=== PATIENT | female | born 1950 | race American Indian/Alaskan Native ===

== ENCOUNTER 2017-04-21 15:42 | Emergency (ER) | payer MEDICARE ==
[2017-04-21 15:47] VITALS: BP 153/82; PULSE 89; RESP 19; TEMP 99.1; O2SAT 95
--- NOTE | 2017-04-21 16:40 | C.PDOC ---
History Of Present Illness 66 yo female come in for evaluation of intermittent Right lower back pain for past few weeks. Pt sts, for past few days, pain radiating now down to Right leg and inner knee. Pain is constant, aching, shooting at time. Otherwise, pt denies fever, chills, sore throat, abd. pain, N/V, denies UTi sx, weakness, sensory or vascular deficits to B/L lEs. Pt sts, had similar sx in past " resembles pain that I had when was diagnosed with DVT". Ambulate to ED with baseline gait, not in any apparent distress. Time Seen by Provider: 04/21/17 16:39 Chief Complaint (Nursing): Lower Extremity Problem/Injury History Per: Patient Past Medical History Reviewed: Historical Data, Nursing Documentation, Vital Signs Vital Signs: Last Vital Signs Temp 99.1 F 04/21/17 15:46 Pulse 89 04/21/17 15:46 Resp 19 04/21/17 15:46 BP 153/82 H 04/21/17 15:46 Pulse Ox 95 04/21/17 17:28 - Medical History PMH: Back Problems, HTN Family History: States: No Known Family Hx - Social History Hx Alcohol Use: No Hx Substance Use: No - Immunization History Hx Tetanus Toxoid Vaccination: No Hx Influenza Vaccination: No Hx Pneumococcal Vaccination: No Review Of Systems Except As Marked, All Systems Reviewed And Found Negative. Constitutional: Negative for: Fever, Chills ENT: Negative for: Throat Pain Cardiovascular: Negative for: Chest Pain, Palpitations, Edema, Light Headedness Respiratory: Negative for: Cough, Shortness of Breath, Wheezing Genitourinary: Negative for: Dysuria, Frequency, Incontinence Musculoskeletal: Positive for: Back Pain, Leg Pain Skin: Negative for: Lesions, Bruising Neurological: Negative for: Weakness, Numbness Physical Exam - Physical Exam Appears: Well, No Acute Distress Skin: Normal Color, Warm, Dry Eye(s): bilateral: PERRL Neck: Supple Cardiovascular: Rhythm Regular Respiratory: No Decreased Breath Sounds, No Accessory Muscle Use, No Stridor, No Wheezing Back: No CVA Tenderness, No Vertebral Tenderness, Paraspinal Tenderness (mild Right lumbar paraspinal tenderness) Extremity: Normal ROM (RLE), Tenderness (mild tenderness Right anterior/medial thigh. Mild tenderness medial aspect Right knee. No palpable deformity. FAROM of RILE, no neurovsacular defiicts.), No Pedal Edema, No Deformity, No Swelling Neurological/Psych: Oriented x3, Normal Speech, Normal Motor, Normal Sensation, Normal Reflexes ED Course And Treatment O2 Sat by Pulse Oximetry: 95 Pulse Ox Interpretation: Normal - CT Scan/US Dupple US RLE Other Rad Studies (CT/US): Read By Radiologist CT/US Interpretation: (-) for DVT, prelim reading Progress Note: On re-evaluation, pt is afebrile, hemodynamicaly stable. Non- toxic. PulseOx 95% RA. ENT: no acute findings. Lungs: CTA B/L, BS equal B/L. back: (-) CVA tenderness. Neurologicaly intact. Doppler US RLE (-) DVT. Pt has clinical findings c/w lumbar radiculopathy. Pt advised. ref. to F/u with PMD in 1-2 days for re-eavl. return to ED if any worsening or new changes. Disposition Counseled Patient/Family Regarding: Studies Performed, Diagnosis, Need For Followup, Rx Given - Disposition Referrals: Anamaria Salgado MD [Staff Provider] - Disposition Time: 18:02 Condition: STABLE Additional Instructions: Light duty to lower back Avoid prolong walking, standing, lifting, bending, etc Take pain medication as prescribed Follow up with PMD in 2-3 days for re-evaluation. Return to Ed if any worsening or new changes. Prescriptions: traMADol [Ultram] 50 mg PO TID #7 tab Instructions: Lumbar Radiculopathy (ED) - Clinical Impression Clinical Impression: Lumbar radiculopathy
--- NOTE | 2017-04-23 11:11 | VASCLAB ---
PROCEDURE: Right Lower Extremity Venous Duplex Exam. HISTORY: pain PRIORS: None. TECHNIQUE: Right common femoral, femoral, popliteal and posterior tibial, peroneal and great saphenous veins were evaluated. Flow was assessed with color Doppler, compressibility, assessment of phasic flow and augmentation response. Report prepared by KATYH Malcolm. FINDINGS: RIGHT: 1. Common Femoral Vein: 1.1. Compressibility - Fully compressible: Thrombus - None: Flow - Phasic: Augmentation -Normal: Reflux - None. 2. Femoral Vein: 2.1. Compressibility - Fully compressible: Thrombus - None: Flow - Phasic: Augmentation -Normal: Reflux - None. 3. Popliteal Vein: 3.1. Compressibility - Fully compressible: Thrombus - None: Flow - Phasic: Augmentation -Normal: Reflux - None. 4. Posterior Tibial Vein: 4.1. Compressibility - Fully compressible: Thrombus - None: Flow - Phasic: Augmentation -Normal: Reflux - None. 5. Peroneal Vein: 5.1. Compressibility - Fully compressible: Thrombus - None: Flow - Phasic: Augmentation -Normal: Reflux - None. 6. Great Saphenous Vein: 6.1. Compressibility - Fully compressible: Thrombus -None: Flow - Phasic: Augmentation - Normal: Reflux - None. OTHER FINDINGS: IMPRESSION: No evidence of deep or superficial vein thrombosis of the right lower extremity with excellent venous flow. Normal valve function noted of the right side. Normal venous flow noted in the left common femoral vein.
== END 2017-04-21 18:53 | disposition home or self-care (01) ==
LOC: C.ER 15:42
DX: M54.16 Radiculopathy, lumbar region (principal)

== ENCOUNTER 2017-12-14 05:23 | Day surgery (SDC) | payer MEDICARE, OTHER ==
[2017-11-26 09:21] VITALS: BMI 30.5
[2017-12-14] MEDS ORDERED: Bupivacaine HCl 0.5% PF (10 ml) Inj ONE ×2 (06:08→09:32)
[2017-12-14] MEDS ORDERED: ceFAZolin IV 1 gm in Dextrose 2 GM/100 ML BAG IVPB ONE (06:08)
[2017-12-14] MEDS ORDERED: EPINEPHrine 1:1000 Nasal Sol(30mL) ONE (06:09)
[2017-12-14] MEDS ORDERED: Propofol 10 mg/ml Inj (20 ML) ONE (06:59)
[2017-12-14] MEDS ORDERED: Rocuronium 10 mg/ml (10 ml) ONE (07:17)
[2017-12-14] MEDS ORDERED: ePHEDrine 50 mg/ml Inj ONE (07:59)
[2017-12-14] MEDS ORDERED: Neostigmine Methylsulfate 3mg/3ml Syringe IV ONE (08:17)
[2017-12-14] MEDS ORDERED: Bupivacaine HCl 0.25% PF (10 ml) Inj ONE (08:54)
[2017-12-14] MEDS ORDERED: HYDROmorphone 0.5 mg/0.5 ml ISec ONE (09:24)
[2017-12-14] MEDS: HYDROmorphone 0.5 mg/0.5 ml ISec IVP PRN ×2 (09:24→09:54)
[2017-12-14] MEDS ORDERED: Oxycodone/Acetaminophen 5/325 mg Tab PO PRN (09:35)
[2017-12-14] MEDS ORDERED: HYDROmorphone 0.5 mg/0.5 ml ISec IVP PRN (09:52)
[2017-12-14] MEDS ORDERED: HYDROmorphone 1 mg/ml ISec ONE (10:34)
[2017-12-14 11:25] VITALS: RESP 18; O2SAT 98
[2017-12-14 11:36] VITALS: BP 133/90; PULSE 100; TEMP 97
--- NOTE | 2017-12-19 22:36 | PCM.SURG1 ---
Surgeon's Initial Post Op Note - Surgeon's Notes Surgeon: Arely Urban MD Candy Cooker Helper: Duglas Lino PA-C Type of Anesthesia: General Endo, Block Regional Pre-Operative Diagnosis: Right knee #1 medial meniscal tear. #2 chondromalacia. #3 synovitis. #4 medial plica Operative Findings: Right knee. #1 medial meniscal tear (complex mid-body to posterior horn with hypermobility). 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 #3 synovitis. #4 medial plica. #5 lateral meniscus tear (complex free edge/white- white zone tear). #6 hypertrophic inflamed fat pad Post-Operative Diagnosis: Right knee. #1 medial meniscal tear (complex mid- body to posterior horn with hypermobility). 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 #3 synovitis. #4 symptomatic medial plica. #5 lateral meniscus tear (complex free edge/white-white zone tear). #6 hypertrophic inflamed fat pad Operation Performed: Right knee arthroscopic: #1 medial meniscus stabilization (repair) w/ partial medial menisectomy. #2 partial lateral menisectomy. #3 extensive synovectomy (including debridement hypertrophic fat pad/ resection symptomatic plica band/ extensive synovectomy all 3 compartments). #4 chondroplasty patella and medial femoral condyle. #5 PRP injection intra- articular Specimen/Specimens Removed: specimen= none. complications= none. tourniquet time= 0min. implants= Linvatec meniscal repair system, 4 implants /1 kit used in medial meniscal repair/ stabilization posterior horn Estimated Blood Loss: EBL {In ML}: 3 Blood Products Given: N/A Drains Used: No Drains Post-Op Condition: Good Date of Surgery/Procedure: 12/14/17 Time of Surgery/Procedure: 10:00
--- NOTE | 2018-01-17 05:12 | OP ---
PROCEDURE DATE: 12/14/2017 PREOPERATIVE DIAGNOSES: Right knee: 1. Medial meniscal tear. 2. Chondromalacia. 3. Synovitis. 4. Symptomatic medial plica band. POSTOPERATIVE DIAGNOSES: Right knee: 1. Medial meniscal tear (complex midbody to posterior horn tear with hypermobility). 2. Chondromalacia grade 1 to 2. 3. Synovitis throughout all 3 compartments. 4. Symptomatic medial plica band. 5. Lateral meniscus tear (complex free edge tear/white-white zone tear). 6. Hypertrophic inflamed fat pad. PROCEDURE: Right knee arthroscopic; 1. Medial meniscus stabilization/repair (with concomitant partial medial meniscectomy and debridement). 2. Partial lateral meniscectomy. 3. Extensive synovectomy in all 3 compartments (including debridement of hypertrophic fat pad/resection of symptomatic plica band/extensive synovectomy in all 3 compartments). 4. Chondroplasty patella and medial femoral condyle. 5. Intraarticular PRP injection. SURGEON: Arely Urban MD HOG COOLER: Duglas Lino PA-C JUSTIFICATION FOR HOG COOLER: Duglas Lino is a certified physician assistant professor of education whose skilled surgical services was an absolute necessity for successful completion of the procedure as he provided skilled surgical assistance with positioning of the patient, positioning of extremity, management of the surgical zamorano, retraction of the neurovascular structures, facilitating all inside medial meniscus repair/stabilization, handling of arthroscopic equipment including facilitating partial lateral meniscectomy and chondroplasty and extensive synovectomy, wound closure, fitting and placement of postop hinge knee brace. Duglas Lino was present for the entire case and was an absolute necessity for the successful completion of the procedure. TYPE OF ANESTHESIA: General endotracheal anesthesia with a postop regional nerve block placed by anesthesia staff in PACU. SPECIMENS: None. COMPLICATIONS: None. TOURNIQUET TIME: 0 minutes. IMPLANTS: Linvatec meniscal repair system, 4 implants/1 kit used in medial meniscal repair. ESTIMATED BLOOD LOSS: 3 mL. DRAINS: None. DISPOSITION: The patient was extubated and transferred to PACU in stable condition and tolerated the procedure well. INDICATIONS FOR SURGERY: The patient is a 67-year-old female with a past medical history significant for hypertension, diabetes, neuropathy, who presented to my office for the first time on 06/21/2017 with right knee pain and dysfunction. X-rays in the office showed that she had good alignment with joint spaces well maintained and no evidence of significant DJD. Physical examination was indicative of medial meniscal tear with positive medial Karsten and a medial plica band that was symptomatic and synovitis. She was referred for an MRI of the right knee done at [facility] on 05/16/2017, which was read as; 1. Medial meniscus with oblique tear involving the posterior horn/body junction. 2. Mild sprain of lateral collateral ligament proximally. On my review of the MRI, there was also some mild signal change in the cartilage and a medial plica band that was visualized. Under my care, she underwent placement in a Neoprene hinge knee brace, and a cortisone mixture injection to the right knee on 06/21/2017 with good resolution of her pain locally. She was compliant with physical therapy and was very happy with the outcome of the injection. The injection unfortunately only lasted a few weeks, and when she followed up in the office, her pain had returned to its baseline level of 9/10 with dysfunction and difficulty with ADLs. She underwent a second cortisone mixture injection on 08/27/2017, and again, she had complete resolution of pain that was temporary. She was compliant with her brace use. Finally when she followed up in the office on 10/22, she stated that she did not want any more injections and that her pain was significantly worse. She was having difficulty with ADLs and going up and down stairs and performing any activities that she likes. As stated before, she did not have any evidence of DJD and therefore, she was indicated for arthroscopic surgery. Right knee arthroscopy surgery = arthroscopic partial medial meniscectomy versus meniscus repair, extensive synovectomy, possible chondroplasty versus microfracture and all related indicated arthroscopic procedures. The risks, benefits and alternatives of the procedure were discussed in length with the patient with the risks including but not limited to infection, neurovascular damage, development of blood clots including DVT and PE, development of chronic pain and disability, failure of repair, failure of surgery, advanced chondrolysis, and degenerative wear, need for further surgery, inability to return to preinjury level of activity and occupation, anesthesia reactions including . After answering all of the questions, she stated that she understood the risks and wished to proceed with surgery. She watched surgical animation videos and diagnosis animation videos and stated that she had a good understanding of the procedure as well as her multiple diagnosis. She was referred to her primary care physician for preoperative medical clearance and PATs and the procedure was scheduled at [facility] on 12/14/2017. DESCRIPTION OF PROCEDURE: The patient was identified in the preoperative holding area and the right knee was marked for surgery. Once again as described above, the risks, benefits, and alternatives of the procedure were discussed at length with the patient and informed consent was obtained. After a brief discussion with anesthesia staff, perioperative IV antibiotics in the form of 2 gm of Ancef were administered. The patient was taken to the operating room, placed in a well-padded operating room table, with all bony prominences and superficial neurovascular structures well-padded. She was placed under general anesthesia without any difficulty or complication. Examination under anesthesia was then carried out. EXAMINATION UNDER ANESTHESIA: Right knee with full range of motion, compared to contralateral knee. No swelling, no warmth, no erythema, skin intact, no evidence of instability with negative anterior Drawer, negative posterior drawer, negative Brice, negative reverse Brice, negative pivot shift, negative reverse pivot shift, negative opening to medial or lateral joint lines at 0 or 30 degrees varus or valgus stress, patella with normal tracking, but there was a reproducible symptomatic medial plica band click engaging the inferomedial aspect of the patella at 30 degrees flexion throughout flexion arc, as well as a palpable click at the medial joint line past 90 degrees of flexion along the medial meniscus. CONTINUATION OF PROCEDURE: A tourniquet was placed high on the right thigh, but never inflated. The right lower extremity was prepped and draped in standard sterile fashion. The final time-out was done with the surgeon, anesthesia staff, OR staff, all in agreement with the patient, procedure being done, and the extremity being operated on. Normal saline 50 mL were used to insufflate the knee joint. Anterolateral portal was created with stab incision through the skin, down to subcutaneous tissues, down to the level of the capsule. A blunt arthroscopic trocar and cannula were inserted into the suprapatellar pouch. Arthroscopic camera was inserted, and insufflation of arthroscopic fluid was begun. With the use of spinal needle localization, optimal entry point for the anteromedial portal was created with stab incision through the skin down to subcutaneous tissues, down to the level of the capsule. With the use of an arthroscopic probe, a diagnostic arthroscopy was then carried out. DIAGNOSTIC ARTHROSCOPY: Attention was first turned towards the suprapatellar pouch, where immediately seen was grade 1 to 2 chondromalacia of the patella as well as hypertrophic synovium throughout all 3 compartments of the knee joint causing mechanical impingement. Extending from the inferior medial aspect of the patella to the medial retinaculum was a thickened symptomatic medial plica band, as well as hypertrophic synovial tissue. Attention was then turned towards the medial gutter where there was no evidence of loose bodies. As stated before, there was symptomatic thickened medial plica band. Attention was then turned towards the medial compartment where immediately seen at the anterior horn was a complex irreparable white-white zone anterior horn tear of the medial meniscus. On careful evaluation, there was indeed an oblique tear at the junction of the posterior horn and body through the white-white zone extending to the red-red zone as an oblique radial tear pattern. There was also significant hypermobility of the posterior horn with ability to sublux the posterior horn and medial meniscus beyond the mid point of the medial femoral condyle. Attention was then turned towards the intercondylar notch where intact ACL and PCL were seen. Attention was then turned towards the lateral compartments where a small complex free edge tear of the mid body of the lateral meniscus was identified that was deemed irreparable, that would be a future site of partial lateral meniscectomy. ARTHROSCOPIC PARTIAL LATERAL MENISCECTOMY: With the use of arthroscopic shaver and radiofrequency ablation and meniscal biters, a partial lateral meniscectomy was carried out, establishing a smooth contour to the complex free edge tearing at the mid body of the lateral meniscus. When this was carried out with satisfaction, approximately 5% of lateral meniscus was removed overall from this white-white zone tear. Final images were taken and attention was then turned towards the medial compartment. ARTHROSCOPIC MEDIAL MENISCUS REPAIR AND STABILIZATION: With the use of arthroscopic shaver and radiofrequency ablation as well as meniscal biters, a partial medial meniscectomy was carried out, removing the poor quality meniscus tissue and complex tearing in the white-white zone that was not amenable to repair. A smooth contour was established and overall approximately 25% of the medial meniscus was removed. As stated before, there was a significant hypermobility component to this injury pattern of the medial meniscus with ability to sublux the posterior horn of the medial meniscus beyond the mid point of the medial femoral condyle. To stabilize this, an all-inside medial meniscal repair was carried out. The posterior horn was stabilized to the posterior medial capsule with the use of Linvatec all-inside Sequent meniscal repair system. Four implants were placed at the superior aspect of the posterior horn, reducing the posterior horn to the posterior medial capsule providing good stability. All 4 implants had good capsular sided fixation resulting in placement of 3 alternating vertical and horizontal mattress sutures at the superior aspect of the posterior medial corner of the posterior medial meniscus, reducing it to the posterior medial capsule with good stability achieved. With the use of the arthroscopic probe, the stabilization/repair construct was tested and indeed good stability had been achieved. ARTHROSCOPIC EXTENSIVE SYNOVECTOMY: With the use of arthroscopic shaver and radiofrequency ablation, an extensive synovectomy was carried out in all 3 compartments of the knee including resection of the symptomatic medial plica band while maintaining good hemostasis and extensive synovectomy of all the inflamed hypertrophic synovium throughout all 3 compartments of the knee joints while maintaining good hemostasis, debridement and resection of the hypertrophic fat pad causing impingement anteriorly while maintaining good hemostasis. Once the extensive synovectomy was carried out to satisfaction, and good hemostasis was achieved, attention was then turned towards treatment of the cartilage injury of the patella. CHONDROPLASTY OF THE PATELLA AND MEDIAL FEMORAL CONDYLE: Both the medial femoral condyle and the patella exhibited grade 1 to 2 chondromalacia with no full thickness cartilage zone of injury seen. There were just some fibrillation and unstable cartilage fragments. With the use of arthroscopic shaver and radiofrequency ablation, a chondroplasty was carried out establishing a smooth rim to the cartilage surface while removing the unstable cartilage fragments. Once this was completed to satisfaction, final arthroscopic imaging of the extensive synovectomy and debridement, the medial meniscal repair, the partial lateral meniscectomy and the cartilage surface treatment was taken. All arthroscopic fluid and debris were removed from the knee joint. INTRAARTICULAR PRP INJECTION: With the help of anesthesia staff, 10 mL of PRP were obtained from a peripheral venous stick. The blood was spun in the Arthrex centrifuge and 10 mL of PRP were obtained. The PRP was injected intraarticular through the arthroscopic camera under direct visualization successfully in its entirety. Once this was done to satisfaction, the arthroscopic portals were then reapproximated with 2-0 Vicryl sutures for subcutaneous tissue, followed by 3-0 Monocryl suture for skin. Sterile dressings were applied followed by a layer of sterile cast padding from the toes up to the superior thigh, followed by a layer of compressive ALEKSANDER wrap from the toes up to the superior thigh. The knee was then fitted and placed in a postop hinged knee brace locked in 0 degrees extension. The brace was provided by my office and of medical necessity to protect the meniscus repair. The patient was then extubated from general anesthesia and transferred to PACU in stable condition and tolerated the procedure well. JUSTIFICATION AND RATIONALE FOR BILLING AND CODIN. Arthroscopic medial meniscal repair/stabilization of the posterior horn was carried out employing an all-inside arthroscopic technique resulting in a stable medial meniscus posterior horn. There was a concomitant partial medial meniscectomy but the most important part of the treatment to preserve her knee joint was the meniscus repair. Therefore, a medial meniscus repair was coded and billed. 2. Arthroscopic partial lateral meniscectomy: A successful partial lateral meniscectomy was carried out arthroscopically, and therefore, it was coded and billed. 3. Extensive synovectomy: An extensive synovectomy was carried out including debridement of the hypertrophic fat pad, extensive synovectomy of all 3 compartments removing the hypertrophic and inflamed synovium causing impingement, resection of the symptomatic medial plica bands. This was beyond usual and customary synovectomy for better visualization of the knee joint during arthroscopic surgery and a substantial amount of surgical time was dedicated towards the extensive synovectomy, and therefore, an extensive synovectomy in all 3 compartments was coded and billed. 4. Chondroplasty of patella and medial femoral condyle and trochlea: An arthroscopic chondroplasty establishing smooth cartilage surface of the patella, trochlea, medial femoral condyle was carried out removing the unstable cartilage fragments as an independent part of the procedure, and therefore, was coded and billed. 5. Intraarticular PRP injection: PRP injection was carried out under direct visualization in intraarticular position, and therefore, was coded and billed. 6. A postop hinge knee brace was fitted and placed on the patient prior to extubation provided by my office and was placed out of medical necessity to provide stability to the medial meniscal repair and to maximize chance of successful outcome after surgery. Therefore, the postop brace was coded and billed. DISPOSITION: The patient will be discharged to home once she has recovered from anesthesia. She has been given a prescription for Percocet for pain control. She has been given a prescription for Lovenox for DVT prophylaxis, 40 mg subcutaneous injection once daily for a period of 2 weeks, starting postoperative day #1. She will contact my office with any questions or concerns. She can be weightbearing as tolerated with the brace locked to 0 degrees extension at all times. She is instructed to keep the dressings clean, dry and intact and the brace on until she follows up in the office at [facility] and already has a postoperative appointment setup. Arely Urban MD
== END 2017-12-14 16:04 | disposition home or self-care (01) ==
LOC: C.SDS 05:23
PROVIDERS: ATTEND Student in an Organized Health Care Education/Training Program
DX: M23.200 Derangement of unspecified lateral meniscus due to old tear or injury, right knee (principal); M67.861 Other specified disorders of synovium, right knee; I10 Essential (primary) hypertension; M65.9 Synovitis and tenosynovitis, unspecified; M23.203 Derangement of unspecified medial meniscus due to old tear or injury, right knee
CPT/HCPCS: 29880; 82948; 97116; 97161; G8978; G8979; G8980; J0690; J1170; J2001; J2405; J2704; J2710; J2765; J3010